=== PATIENT | female | born 1975 | race Asian ===

== ENCOUNTER → 2019-03-29 | Outpatient (CLI) | payer OTHER ==
--- NOTE | 2019-03-29 14:27 | RAD ---
EXAM: Pelvic sonogram. HISTORY: Abnormal bleeding. TECHNIQUE: Transabdominal and transvaginal sonographic imaging of the pelvis was performed. COMPARISON: None. FINDINGS: The uterus measures 8.3 x 5.7 x 4.2 cm. The endometrial stripe measures 12 abdomen thickness. The uterus is retroverted. The ovaries are normal in size and demonstrate normal blood flow. There is a simple appearing left ovarian cyst measuring 2.6 cm. There is a nabothian cyst within the cervix. There is a small amount of pelvic free fluid. IMPRESSION: 1. 2.6 cm simple appearing left ovarian cyst. This likely a dominant follicular cyst. 2. Small nabothian cyst within the cervix. 3. Retroverted uterus. 4. Small amount of nonspecific pelvic free fluid, within physiologic limits. 5. Thin endometrial stripe. Electronically signed by: Lanette Watson MD (03/29/2019 2:25 PM) [id number]
== END | disposition home or self-care (01) ==
LOC: EDSEX 08:50 → US 08:50
PROVIDERS: ATTEND Obstetrics & Gynecology
DX: N88.8 Other specified noninflammatory disorders of cervix uteri (principal); N83.202 Unspecified ovarian cyst, left side
CPT/HCPCS: 76830; 76856

== ENCOUNTER → 2021-08-27 | Outpatient (CLI) | payer OTHER | LOC: LAB 15:24 | PROVIDERS: ATTEND Internal Medicine Cardiovascular Disease | DX: U07.1 COVID-19 (principal) | CPT/HCPCS: U0003 ==